=== PATIENT | female | born 1955 | race Caucasian/White ===

== ENCOUNTER 2016-04-27 10:58 | Outpatient (CLI) | payer BC ==
[~2016-04-27 10:58] MED LIST: AMLODIPINE; HYDROCHLORTHIAZIDE; LISINOPRIL
== END 2016-04-27 20:09 | disposition home or self-care (01) ==
LOC: SRD 10:58
PROVIDERS: ATTEND Internal Medicine
DX: R76.11 Nonspecific reaction to tuberculin skin test without active tuberculosis (principal); R05 Cough
CPT/HCPCS: 71020-TC

== ENCOUNTER 2017-05-29 15:53 | Outpatient (CLI) | payer BC | END 2017-05-29 20:46 | disposition home or self-care (01) | LOC: SRD 15:53 | PROVIDERS: ATTEND Internal Medicine | DX: M25.561 Pain in right knee (principal) | CPT/HCPCS: 73564 ==

== ENCOUNTER 2018-05-28 10:59 | Emergency (ER) | payer BC ==
[~2018-05-28] VITALS: Ht 154.9 cm; Wt 87.5 kg
[2018-05-28 11:07] VITALS: BP_SYST 146
[2018-05-28 12:27] LABS: BASOPHILS # (AUTO) 0.1 K/uL (0.0-0.2); BASOPHILS % (AUTO) 0.7 % (0.0-2.0); EOSINOPHILS # (AUTO) 0.2 K/uL (0.0-0.4); EOSINOPHILS % (AUTO) 3.3 % (0.0-4.0); HEMATOCRIT 42.2 % (36-48); HEMOGLOBIN 14.4 g/dL (12.0-16.0); LYMPHOCYTES # (AUTO) 1.5 K/uL (1.0-5.5); LYMPHOCYTES % (AUTO) 20.9 % (20.5-51.5); MEAN CORPUSCULAR HEMOGLOBIN 30 pg (27-31); MEAN CORPUSCULAR HGB CONC 34 % (32-36); MEAN CORPUSCULAR VOLUME 87 fL (79.0-98.0); MONOCYTES # (AUTO) 0.6 K/uL (0.0-1.0); MONOCYTES % (AUTO) 8.4 % (1.7-9.3); NEUTROPHILS # (AUTO) 4.7 K/uL (1.8-7.7); NEUTROPHILS % (AUTO) 66.7 % (40.0-70.0); PLATELET COUNT (AUTO) 355 K/uL (130-430); RED BLOOD CELL COUNT(AUTO) 4.85 MIL/uL (4.2-6.2); RED CELL DISTRIBUTION WIDTH 12.9 % (9.0-15.0); WHITE BLOOD COUNT (AUTO) 7.1 K/uL (4.8-10.8)
[2018-05-28 12:37] LABS: CALCIUM 9.4 mg/dL (8.4-11.0); CREATININE 0.66 mg/dL (0.55-1.30)
[2018-05-28 12:42] LABS: TOTAL BILIRUBIN 1.2 mg/dL (0.0-1.0)
[2018-05-28 12:47] LABS: POTASSIUM 2.8 mmol/L (3.5-5.1)
[2018-05-28] MEDS ORDERED: POTASSIUM CHLORIDE 20 MEQ/PKT PACKET PO ONE (13:30)
[2018-05-28 15:36] VITALS: BP_SYST 142
== END 2018-05-28 15:36 | disposition home or self-care (01) ==
LOC: SED 10:59
DX: J40 Bronchitis, not specified as acute or chronic (principal); E87.6 Hypokalemia; I10 Essential (primary) hypertension; Z88.0 Allergy status to penicillin; Z79.899 Other long term (current) drug therapy
CPT/HCPCS: 36415; 71045; 80053; 83880; 84484; 85025; 86710; 99284

== ENCOUNTER 2018-06-19 11:54 | Outpatient (CLI) | payer BC | END 2018-06-19 21:17 | disposition home or self-care (01) | LOC: SRD 11:54 | PROVIDERS: ATTEND Internal Medicine | DX: J40 Bronchitis, not specified as acute or chronic (principal) | CPT/HCPCS: 71046-TC ==

== ENCOUNTER 2020-09-13 09:22 | Emergency (ER) | payer BC, OTHER ==
[~2020-09-13] VITALS: Ht 154.9 cm; Wt 83.9 kg
[2020-09-13 09:35] VITALS: BP_SYST 182
[2020-09-13 11:28] LABS: BILIRUBIN,URINE NEGATIVE (NEGATIVE); CLARITY/URINE CLEAR (CLEAR); COLOR,URINE YELLOW (YELLOW); GLUCOSE,URINE NEGATIVE (NEGATIVE); KETONES,URINE NEGATIVE (NEGATIVE); LEUKOCYTE ESTERASE ,URINE NEGATIVE (NEGATIVE); NITRITE, URINE NEGATIVE (NEGATIVE); PROTEIN URINE NEGATIVE (NEGATIVE); UROBILINOGEN,URINE 0.2 (0.2-1.0)
[2020-09-13 11:33] LABS: BLOOD, URINE TRACE (NEGATIVE)
[2020-09-13 11:56] LABS: BACTERIA,URINE RARE /HPF (None Seen); RBC,URINE 0-3 /HPF (0-3); WBC,URINE NONE SEEN /HPF (0-3)
--- NOTE | 2020-09-13 12:50 | NUR ---
PT TO BED 1, GOWNED AND ATTACHED TO CELLULAR BIOLOGIST.
--- NOTE | 2020-09-13 12:56 | NUR ---
Pt walked in to ER with c/o abdominal pain 09/21 x2-3 months, reports nausea, denies vomiting. V/S stable, no acute distress noted.
--- NOTE | 2020-09-13 13:00 | NUR ---
JUAN Kruger at bedside examining patient.
--- NOTE | 2020-09-13 13:07 | NUR ---
Lab at bedside for blood draw
[2020-09-13 13:27] LABS: BASOPHILS % (AUTO) 0.4 % (0.0-2.0); EOSINOPHILS % (AUTO) 0.2 % (0.0-4.0); HEMATOCRIT 41.8 % (36-48); HEMOGLOBIN 14.5 g/dL (12.0-16.0); LYMPHOCYTES # (AUTO) 1.3 K/uL (1.0-5.5); LYMPHOCYTES % (AUTO) 20.2 % (20.5-51.5); MEAN CORPUSCULAR HEMOGLOBIN 30 pg (27-31); MEAN CORPUSCULAR HGB CONC 35 % (32-36); MEAN CORPUSCULAR VOLUME 87 fL (79.0-98.0); MONOCYTES # (AUTO) 0.3 K/uL (0.0-1.0); MONOCYTES % (AUTO) 4.4 % (1.7-9.3); NEUTROPHILS # (AUTO) 4.9 K/uL (1.8-7.7); NEUTROPHILS % (AUTO) 74.8 % (40.0-70.0); PLATELET COUNT (AUTO) 329 K/uL (130-430); RED BLOOD CELL COUNT(AUTO) 4.78 MIL/uL (4.2-6.2); RED CELL DISTRIBUTION WIDTH 13.6 % (9.0-15.0); WHITE BLOOD COUNT (AUTO) 6.6 K/uL (4.8-10.8)
[2020-09-13 13:34] LABS: ALBUMIN 4.2 g/dL (3.4-4.8); CALCIUM 9.7 mg/dL (8.4-11.0); CREATININE 0.77 mg/dL (0.55-1.30); POTASSIUM 3.3 mmol/L (3.5-5.1); TOTAL BILIRUBIN 1.3 mg/dL (0.0-1.0)
--- NOTE | 2020-09-13 14:50 | NUR ---
DR. PEREA AT BEDSIDE TO ASSESS.
--- NOTE | 2020-09-13 15:00 | NUR ---
PT AWAITING LAB RESULTS AND CT SCAN.
--- NOTE | 2020-09-13 15:05 | NUR ---
PT TO CT SCAN WITH RADIOLOGY.
--- NOTE | 2020-09-13 15:15 | NUR ---
CALM, ALERT, NO DISTRESS, RESP UNLABORED, SKIN WARM AND DRY. COMMUNICATES CLEARLY IN FULL COMPLETE SENTECES
[2020-09-13] MEDS ORDERED: KETOROLAC TROMETHAMINE 60 MG/2 ML VIAL IM ONE (16:00)
[2020-09-13] MEDS ORDERED: HYDROcodone/ACETAMIN 5-325 MG TAB (NORCO/ VICODIN) PO ONE (16:00)
[2020-09-13 16:49] LABS: C-REACTIVE PROTEIN QUANT 0.5 mg/dL (0-0.5)
--- NOTE | 2020-09-13 16:54 | NUR ---
DR PEREA IN TO ASSESS
[2020-09-13 16:55] VITALS: BP_SYST 141
--- NOTE | 2020-09-13 16:55 | NUR ---
Patient given written and verbal discharge instructions and verbalizes understanding. ER MD discussed with patient the results and treatment provided. Patient in stable condition. ID arm band removed. IV catheter removed intact and dressing applied, no active bleeding. Rx of IBU,NORCO given. Patient educated on pain management and to follow up with PMD. Pain Scale 0/10 Opportunity for questions provided and answered. Medication side effect fact sheet provided.
[2020-09-13] MEDS ORDERED: IBUP-1969 PO (16:56)
[2020-09-13] MEDS ORDERED: HYDR-3917 PO (16:56)
[2020-09-13 17:09] LABS: PROTHROMBIN TIME 10.5 SECS (9.5-12.5)
== END 2020-09-13 16:55 | disposition home or self-care (01) ==
LOC: SED 12:46
DX: R51.9 Headache, unspecified (principal); D25.9 Leiomyoma of uterus, unspecified; I10 Essential (primary) hypertension; Z88.0 Allergy status to penicillin; Z79.899 Other long term (current) drug therapy
CPT/HCPCS: 36415; 70450; 74176; 76376; 80053; 81000; 82150; 83605; 83615; 83690; 84484; 85025; 85610; 85651; 85730; 86140; 96372; 99285; J1885